=== PATIENT | female | born 1955 | race Hispanic/Latino ===

== ENCOUNTER 2018-11-19 17:20 | Observation (INO) | payer OTHER ==
[~2018-11-19] VITALS: Ht 149.9 cm; Wt 76.3 kg
[~2018-11-19 17:20] MED LIST: ECPIRIN325 MG PO
[2018-11-19] MEDS ORDERED: ASPIRIN 81 MG CHEW TAB PO ONE ×2 (18:00→21:00)
[2018-11-19 18:03] LABS: BASOPHILS # (AUTO) 0.1 (0.0-0.1); BASOPHILS % 0.7 % (0.0-1.0); EOSINOPHILS # (AUTO) 0.1 (0.0-0.4); HEMOGLOBIN 14.9 g/dL (12.0-16.0); LYMPHOCYTES # (AUTO) 2.4 (1.0-3.2); LYMPHOCYTES % 24.4 % (18.0-39.1); MEAN CORPUSCULAR HEMOGLOBIN 31.1 pg (28-32); MEAN CORPUSCULAR HGB CONC 33.9 g/dL (31-35); MEAN CORPUSCULAR VOLUME 91.9 fL (81-99); MONOCYTES # (AUTO) 0.6 (0.2-0.8); MONOCYTES % 6.1 % (4.4-11.3); NEUTROPHILS # (AUTO) 6.5 (2.1-6.9); NEUTROPHILS % 67.5 % (38.7-80.0); PLATELET COUNT 312 x10e3/uL (140-360); RED BLOOD COUNT 4.79 x10e6/uL (3.6-5.1); RED CELL DISTRIBUTION WIDTH 12.3 % (11.7-14.4)
[2018-11-19 18:06] LABS: INR 0.85; PROTHROMBIN TIME 12.4 seconds (11.9-14.5)
[2018-11-19 18:07] LABS: PARTIAL THROMBOPLASTIN TIME 26.4 seconds (23.8-35.5)
[2018-11-19 18:13] LABS: ALANINE AMINOTRANSFERASE 46 IU/L (0-55); ALBUMIN 3.8 g/dL (3.5-5.0); ALBUMIN/GLOBULIN RATIO 1.1 (0.8-2.0); ALKALINE PHOSPHATASE 76 IU/L (40-150); ANION GAP 14.1 mmol/L (8-16); BLOOD UREA NITROGEN 9 mg/dL (7-26); BUN/CREATININE RATIO 12 (6-25); CALCIUM 9.5 mg/dL (8.4-10.2); CARBON DIOXIDE 24 mmol/L (22-29); CHLORIDE 105 mmol/L (98-107); CREATINE KINASE 49 IU/L (29-168); CREATININE, SERUM 0.76 mg/dL (0.57-1.11); EST GLOMERULAR FILTRATION RATE > 60 ML/MIN (60-); GLUCOSE 169 mg/dL (74-118); POTASSIUM 4.1 mmol/L (3.5-5.1); SODIUM 139 mmol/L (136-145)
--- NOTE | 2018-11-19 18:40 | Diagnostic Imaging Report ---
EXAM: XR CHEST 1 VIEW DATE: 11/19/2018 5:49 PM INDICATION: Pain COMPARISON: None FINDINGS: Lines and Tubes: None Heart and Mediastinum: No acute cardiomediastinal findings. Lungs and Pleura: No significant pleural effusion, pneumothorax, or focal consolidation. Bones and Soft Tissues: No acute findings. IMPRESSION: 1. No acute cardiopulmonary findings. Signed by: Dr. Familia Robbins MD on 11/19/2018 6:36 PM
--- NOTE | 2018-11-19 19:25 | NUR ---
PT PLACED IN A GOWN AND ON THE MONITOR. URINE COLLECTED. FAMILY AT BEDSIDE
[2018-11-19 19:46] LABS: COLOR,URINE YELLOW (YELLOW)
[2018-11-19 19:47] LABS: BILIRUBIN,URINE NEGATIVE (NEGATIVE); CLARITY,URINE CLEAR (CLEAR); KETONES,URINE NEGATIVE (NEGATIVE); LEUKOCYTE ESTERASE ,URINE NEGATIVE (NEGATIVE); NITRITE,URINE NEGATIVE (NEGATIVE); PROTEIN,URINE DIPSTICK NEGATIVE (NEGATIVE); URINE UROBILINOGEN 0.2 mg/dL (0.2 - 1)
[2018-11-19] MEDS ORDERED: NITROGLYCERIN 0.4 MG SUBL SL PRN (21:00)
[2018-11-19] MEDS ORDERED: DEXTROSE 50% SYRINGE 50 ML IV PRN (21:00)
[2018-11-19] MEDS ORDERED: SODIUM CHLORIDE FLUSH 10 ML SYR INJ PRN (21:00)
[2018-11-19] MEDS ORDERED: MORPHINE SULFATE 2 MG/ML SYR 1ML IV PRN (21:00)
[2018-11-19] MEDS ORDERED: ONDANSETRON HCL INJ 2MG/ML 2ML 2 MG/ML VIAL IV PRN (21:00)
--- OUTSIDE RECORDS SUMMARY | 2018-11-19 21:12 | XMS REPORT ---
Author Author [facility] Address Unknown Phone Unavailable Care Team Providers Care Chore Tender Name Role Phone Melissa MCARTHUR Unavailable Unavailable Problems This patient has no known problems. Allergies, Adverse Reactions, Alerts This patient has no known allergies or adverse reactions. Medications This patient has no known medications. Results Test Description Test Time Test Comments Text Results Atomic Results Result Comments CHEST SINGLE (PORTABLE) 2018-11-19 18:36:00 [place] [id number] Patient Name: AMANDA ARRIAGA MR #: [id number] : 1955 Age/Sex: 63/F Req #: [id number] Adm Physician: Ordered by: ALEJANDRO MCARTHUR MD Report #: [id number] Location: ER Room/Bed: Procedure: [id number] DX/CHEST SINGLE (PORTABLE) Exam Date: 11/19/18 Exam Time: 1815 REPORT STATUS: Signed EXAM: XR CHEST 1 VIEW DATE: 11/19/2018 5:49 PM INDICATION: Pain COMPARISON: None FINDINGS: Lines and Tubes: None Heart and Mediastinum: No acute cardiomediastinal findings. Lungs and Pleura: No significant pleural effusion, pneumothorax, or focal consolidation. Bones and Soft Tissues: No acute findings. IMPRESSION: 1. No acute cardiopulmonary findings. Signed by: Dr. Familia Robbins MD on 11/19/2018 6:36 PM Dictated By: FAMILIA ROBBINS MD 35 Transcribed By: MARI on 11/19/181835 COPY TO: ALEJANDRO MCARTHUR MD
[2018-11-19] MEDS ORDERED: MORPHINE SULFATE INJ 4 MG/ML INJ 1ML IV PRN (21:15)
[2018-11-19] MEDS ORDERED: GLYBURIDE-METF1 EAC1 PO (21:20)
[2018-11-19] MEDS ORDERED: LISINOPRIL5 MG PO (21:20)
[2018-11-19] MEDS: FAMOTIDINE 20 MG TAB PO SCH (21:27)
[2018-11-19] MEDS: INSULIN REGULAR, HUMAN 100 UNIT/1 ML 3ML VIAL SQ SCH (21:27)
--- NOTE | 2018-11-19 21:35 | NUR ---
Pt admitted to room 176 via wheelchair. Pt A&Ox4. Skin warm, dry, and intact. 20g IV right AC, flushed with 10ml NS. Denies chest pain or discomfort. Denies SOB. Resp even and unlabored. Cap refill <3 secs. AROM x4 extremities. +2 equal bilateral bottle washer. VS stable. BS elevated 243, Pt stated just ate [employer] 6 inch sandwich. Glasses affixed to face. Tele #[address] BM today. Denies dysuria. Oriented to room. Call salas within reach. Bed low and in locked position. Will continue to monitor. Addendum: 11/20/18 at 0540 by Jami Medrano RN time [id number]
[2018-11-20] VITALS (7 sets, daily range): BP systolic 149–182; BP diastolic 73–94
[2018-11-20 05:24] LABS: CREATINE KINASE 43 IU/L (29-168)
[2018-11-20] MEDS: INSULIN REGULAR, HUMAN 100 UNIT/1 ML 3ML VIAL SQ SCH ×2 (08:00→11:30)
[2018-11-20] MEDS ORDERED: ASPIRIN 81 MG ENTERIC COATED PO SCH (09:00)
[2018-11-20] MEDS: FAMOTIDINE 20 MG TAB PO SCH (09:20)
--- NOTE | 2018-11-20 10:30 | NUR ---
CONSENT FORM FOR NUCLEAR STRESS TEST SIGNED AT THIS TIME
--- NOTE | 2018-11-20 13:33 | Consultation ---
DATE OF CONSULTATION: November 20, 2018 CARDIOLOGY CONSULTATION ATTENDING PHYSICIAN: Kristopher Roach MD REASON FOR CONSULTATION: Chest pain. HISTORY OF PRESENT ILLNESS: Ms. Sanches is a 63-year-old, pleasant woman with a history of hypertension, diabetes mellitus type 2, and episode of atypical chest discomfort, who presented to [facility] for complaint of chest pain described as pressure-like, mid-sternal, radiating to the left upper extremity and shoulder, ongoing for 2 days, intermittent, associated with dizziness. No other associated complaints. Lasting 20 minutes to 30 minutes at a time and recurrent. Unaffected by exertion, meals, inspiration, exercise or position. Symptoms have improved and were moderate in severity, currently symptom-free. Her EKG shows normal sinus rhythm with right bundle-branch block. She has ruled out for NV with serial cardiac enzymes. She reports prior episodes of discomfort like this in the past. REVIEW OF SYSTEMS: A 12-system review is negative, except for as noted above. PAST MEDICAL HISTORY: Significant for diabetes mellitus and hypertension. SURGICAL HISTORY: Includes carpal tunnel surgery and tubal ligation. SOCIAL HISTORY: No smoking, alcohol or drugs. FAMILY HISTORY: Noncontributory. ALLERGIES: NO KNOWN DRUG ALLERGIES. TELEMETRY: In sinus rhythm. PHYSICAL EXAMINATION VITALS: Temperature 97.9, heart rate 67, respiratory rate 19, blood pressure 149/94, O2 sat 98% on room air. GENERAL: No acute distress, alert. NECK: No JVD. CHEST: Clear to auscultation. CARDIOVASCULAR: Regular rate and rhythm, normal S1 and S2. No S3. No S4. No murmur or rubs. ABDOMEN: Soft, nontender and nondistended. EXTREMITIES: No cyanosis, clubbing or edema. CARDIOVASCULAR MEDICATIONS: Aspirin 81 mg daily. STUDIES: Reviewed. White blood cells 9.6, hemoglobin 14.9, platelets 312. INR is 0.8. Glucose 177. Troponin I negative x2. Triglycerides 121, total cholesterol 201, LDL 127, HDL 50. Chest x-ray: No acute cardiopulmonary findings. ASSESSMENT 1. Atypical chest pain. 2. Diabetes mellitus. 3. Hypertension. 4. Morbid obesity. RECOMMENDATIONS: Proceed with stress test today for further risk stratification. Continue telemetry. The patient does complain of occasional palpitations. Outpatient telemetry monitoring advised if symptoms continue. May resume home cardiovascular medications including lisinopril. Her echocardiogram has been reviewed. She has preserved left ventricular systolic function, no significant valvular abnormalities, mild LVH. I thank Dr. Roach for the opportunity to participate in the care of Ms. Sanches. Please feel free to call with any questions. Job#: [id number]
[2018-11-20] MEDS ORDERED: CARVEDILOL3.125 MG PO (16:19)
[2018-11-20] MEDS ORDERED: INSULIN LISPRO 100 UNIT/1 ML 3ML VIAL SQ SCH (16:30)
[2018-11-20] MEDS ORDERED: CARVEDILOL 3.125 MG TAB PO SCH (17:00)
--- NOTE | 2018-11-20 17:18 | NUR ---
SPOKE WITH , PT OKAY TO GO HOME FROM CARDIAC STANDPOINT. RX GIVEN EDUCATION AND F/U INSTRUCTIONS IV DC'D SECURED WITH 4X4 GAUZE AND TAPE. PT WAITING FOR RIDE
[2018-11-21] MEDS ORDERED: LISINOPRIL 2.5 MG TAB PO SCH (09:00)
[2018-11-21] MEDS ORDERED: LISINOPRIL 2.5 MG PO SCH (09:00)
--- NOTE | 2018-11-21 16:45 | Cardiology Report ---
DATE OF STUDY: November 19, 2018 TREADMILL MYOCARDIAL PERFUSION STRESS TEST INTERPRETATION: Heart rate at rest was 76 and blood pressure 151/83. Resting EKG: Normal sinus rhythm with right bundle-branch block. After a total of 7 minutes of Víctor protocol treadmill stress test with 1 minute into stage-III of Víctor protocol, the patient achieved a peak heart rate of 148 beats per minute, representing 94% of maximum predicted heart rate. Blood pressure at peak was 201/85. Myocardial perfusion reveals normal rest and stress perfusion, and gated images demonstrate hyperdynamic left ventricular systolic function, normal regional wall motion, and left ventricular ejection fraction more than 70%. CONCLUSIONS 1. Normal hemodynamic response to treadmill stress test. 2. Normal electrocardiographic response to treadmill stress test with no significant ST changes or arrhythmias throughout stress or recovery. 3. Normal myocardial perfusion at rest and stress. 4. Hyperdynamic left ventricular systolic function with left ventricular ejection fraction more than 70%. 5. Adequate exercise capacity. Job#: [id number]
== END 2018-11-20 18:03 | disposition home or self-care (01) ==
LOC: ER 17:20 → ERHOLD 21:09 → IMCU 23:51
PROVIDERS: ADMIT Internal Medicine; ATTEND Internal Medicine
DX: R07.89 Other chest pain (principal); R07.2 Precordial pain; I10 Essential (primary) hypertension; E11.9 Type 2 diabetes mellitus without complications; Z83.3 Family history of diabetes mellitus; Z82.49 Family history of ischemic heart disease and other diseases of the circulatory system; E66.01 Morbid (severe) obesity due to excess calories; Z68.34 Body mass index [BMI] 34.0-34.9, adult
CPT/HCPCS: 36415 ×2; 71045; 78452; 80053; 80061; 81001; 82550 ×2; 82553 ×2; 82948 ×2; 83880; 84484 ×2; 85025; 85610; 85730; 93005; 93017; 93306; 99284; A9502; G0378 ×2

== ENCOUNTER 2021-04-02 17:19 | Emergency (ER) | payer OTHER ==
[~2021-04-02] VITALS: Ht 149.9 cm; Wt 73.5 kg
[~2021-04-02 17:19] MED LIST changes: +CARVEDILOL3.125 MG PO; +GLYBURIDE-METF1 EAC1 PO; +LISINOPRIL5 MG PO; +MACROBID 100 M100 MG PO; +PYRIDIUM100 MG PO
[2021-04-02 18:09] LABS: BASOPHILS # (AUTO) 0.1 (0.0-0.1); BASOPHILS % 0.5 % (0.0-1.0); EOSINOPHILS # (AUTO) 0.1 (0.0-0.4); EOSINOPHILS % 1.1 % (0.0-6.0); HEMATOCRIT 43.9 % (34.2-44.1); HEMOGLOBIN 14.7 g/dL (12.0-16.0); LYMPHOCYTES % 28.4 % (18.0-39.1); MEAN CORPUSCULAR HEMOGLOBIN 30.4 pg (28-32); MEAN CORPUSCULAR HGB CONC 33.5 g/dL (31-35); MEAN CORPUSCULAR VOLUME 90.7 fL (81-99); MONOCYTES # (AUTO) 0.6 (0.2-0.8); MONOCYTES % 6.2 % (4.4-11.3); NEUTROPHILS # (AUTO) 6.6 (2.1-6.9); NEUTROPHILS % 63.5 % (38.7-80.0); PLATELET COUNT 317 x10e3/uL (140-360); RED BLOOD COUNT 4.84 x10e6/uL (3.6-5.1); RED CELL DISTRIBUTION WIDTH 12.4 % (11.7-14.4)
[2021-04-02 18:12] LABS: CLARITY,URINE CLEAR (CLEAR); COLOR,URINE YELLOW (YELLOW)
[2021-04-02 18:13] LABS: KETONES,URINE NEGATIVE (NEGATIVE); LEUKOCYTE ESTERASE ,URINE TRACE (NEGATIVE); NITRITE,URINE NEGATIVE (NEGATIVE); PROTEIN,URINE DIPSTICK NEGATIVE (NEGATIVE); URINE UROBILINOGEN 0.2 mg/dL (0.2 - 1)
[2021-04-02 18:22] LABS: ALANINE AMINOTRANSFERASE 13 IU/L (0-55); ALBUMIN 4.1 g/dL (3.5-5.0); ALBUMIN/GLOBULIN RATIO 1.1 (0.8-2.0); ALKALINE PHOSPHATASE 71 IU/L (40-150); ANION GAP 15.7 mmol/L (8-16); BLOOD UREA NITROGEN 9 mg/dL (7-26); BUN/CREATININE RATIO 12 (6-25); CALCIUM 9.7 mg/dL (8.4-10.2); CARBON DIOXIDE 25 mmol/L (22-29); CHLORIDE 105 mmol/L (98-107); CREATINE KINASE 46 IU/L (29-168); CREATININE, SERUM 0.74 mg/dL (0.57-1.11); EST GLOMERULAR FILTRATION RATE > 60 ML/MIN (60-); GLUCOSE 104 mg/dL (74-118); POTASSIUM 3.7 mmol/L (3.5-5.1); SODIUM 142 mmol/L (136-145)
[2021-04-02 18:24] LABS: BACTERIA,URINE MODERATE /HPF; EPITHELIAL CELLS,URINE MODERATE /LPF; WBC,URINE (MAN) 0-5 /HPF (0-5)
[2021-04-02 20:01] VITALS: BP 144/81
== END 2021-04-02 20:03 | disposition home or self-care (01) ==
LOC: ER 17:30
DX: R00.2 Palpitations (principal); R11.2 Nausea with vomiting, unspecified; I49.1 Atrial premature depolarization; R07.89 Other chest pain; I10 Essential (primary) hypertension; E11.9 Type 2 diabetes mellitus without complications; R94.31 Abnormal electrocardiogram [ECG] [EKG]
CPT/HCPCS: 36415; 71045; 80053; 81001; 82550; 82553; 83880; 84484; 85025; 93005; 99284

== ENCOUNTER 2024-09-17 13:11 | Emergency (ER) | payer MEDICARE, OTHER ==
[~2024-09-17] VITALS: Ht 149.9 cm; Wt 73.5 kg
[2024-09-17 13:49] LABS: BASOPHILS # (AUTO) 0.1 (0.0-0.1); BASOPHILS % 0.7 % (0.0-1.0); EOSINOPHILS # (AUTO) 0.1 (0.0-0.4); EOSINOPHILS % 1.6 % (0.0-6.0); HEMATOCRIT 43.8 % (34.2-44.1); HEMOGLOBIN 14.4 g/dL (12.0-16.0); LYMPHOCYTES # (AUTO) 2.3 (1.0-3.2); LYMPHOCYTES % 26.1 % (18.0-39.1); MEAN CORPUSCULAR HGB CONC 32.9 g/dL (31-35); MEAN CORPUSCULAR VOLUME 94.4 fL (81-99); MONOCYTES # (AUTO) 0.5 (0.2-0.8); MONOCYTES % 6.2 % (4.4-11.3); NEUTROPHILS # (AUTO) 5.7 (2.1-6.9); NEUTROPHILS % 65.2 % (38.7-80.0); PLATELET COUNT 261 x10e3/uL (140-360); RED BLOOD COUNT 4.64 x10e6/uL (3.6-5.1); RED CELL DISTRIBUTION WIDTH 12.6 % (11.7-14.4); WHITE BLOOD COUNT 8.78 x10e3/uL (4.8-10.8)
[2024-09-17] MEDS: LACTATED RINGER'S 1,000 ML INJ ONE (13:55)
[2024-09-17] MEDS: MAGNESIUM/ALUMINUM/SIMETHICONE 30 ML UDC PO ONE (13:56)
[2024-09-17] MEDS: ONDANSETRON HCL INJ 2MG/ML 2ML 2 MG/ML VIAL IV STA (13:56)
[2024-09-17] MEDS: BELLADONNA ALK/PHENOBARBITAL 5 ML UDC PO STA (13:57)
[2024-09-17] MEDS: LIDOCAINE VISC 2% SOLN 15 ML UDC PO ONE (13:57)
[2024-09-17 14:13] LABS: ALBUMIN 3.8 g/dL (3.5-5.0); ALBUMIN/GLOBULIN RATIO 1.1 (0.8-2.0); ANION GAP 15.8 mmol/L (8-16); BILIRUBIN,TOTAL 0.5 mg/dL (0.2-1.2); CALCIUM 9.8 mg/dL (8.4-10.2); CREATININE, SERUM 1.17 mg/dL (0.57-1.11); POTASSIUM 3.8 mmol/L (3.5-5.1); TOTAL PROTEIN 7.3 g/dL (6.5-8.1)
[2024-09-17 14:19] LABS: TROPONIN I 0.009 ng/mL (0-0.300)
[2024-09-17] MEDS ORDERED: OMEPRAZOLE40 MG PO (14:24)
[2024-09-17 14:27] VITALS: PULSE 88; RESP 18; TEMP 97.3; O2SAT 98
== END 2024-09-17 15:23 | disposition home or self-care (01) ==
LOC: ER 13:14
DX: R10.13 Epigastric pain (principal); K29.70 Gastritis, unspecified, without bleeding; E11.65 Type 2 diabetes mellitus with hyperglycemia; I10 Essential (primary) hypertension; K21.9 Gastro-esophageal reflux disease without esophagitis; F41.9 Anxiety disorder, unspecified
CPT/HCPCS: 36415; 71045; 80053; 83690; 84484; 85025; 93005; 99284; J2405; J2470; J7121